=== PATIENT | male | born 1995 | race African-American/Black ===

== ENCOUNTER 2017-03-03 18:15 | Emergency (ER) | payer OTHER ==
[~2017-03-03] VITALS: Ht 172.7 cm; Wt 73.6 kg
[2017-03-03] MEDS ORDERED: DOXY100C37 PO (19:11)
[2017-03-03] MEDS ORDERED: DOXYCYCLINE HYCLATE 100 MG TAB PO ONE (19:15)
[2017-03-03 19:21] VITALS: BP 123/58
== END 2017-03-03 19:24 | disposition home or self-care (01) ==
LOC: M ED 18:15
DX: L03.114 Cellulitis of left upper limb (principal); F17.210 Nicotine dependence, cigarettes, uncomplicated